=== PATIENT | female | born 2005 | race Caucasian/White ===

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

== ENCOUNTER 2024-04-11 08:42 | Emergency (ER) | payer OTHER ==
[2024-04-11 08:51] VITALS: RESP 18
[2024-04-11] MEDS: SODIUM CHLORIDE 0.9% 1,000 ML IV STA (10:17)
--- NOTE | 2024-04-11 10:19 | ED ---
Nausea/Vomiting/Diarrhea HPI - General Chief complaint: Nausea/Vomiting/Diarrhea Stated complaint: vomiting Time Seen by Provider: 04/11/24 08:53 Source: patient, RN notes reviewed Mode of arrival: ambulatory Limitations: no limitations - History of Present Illness Initial comments: This is a 18-year-old female who presents to the emergency department for nausea and vomiting. States that it started around 10 to 11 PM last night. She has been up all night vomiting and is unable to sleep. She has diarrhea as well. She has chills but has not measured any fevers. She has generalized abdominal discomfort from all of the vomiting. She has been around individuals who have been sick with the same symptoms. MD complaint: nausea, vomiting, diarrhea - Related Data Home Medications Medication Instructions Recorded Confirmed Doxylamine Succinate [Unisom] 25 mg PO DAILY 09/29/22 09/30/22 Vit No.179/Iron/Folic 1 tab PO DAILY 09/29/22 09/30/22 [ Tablet] Previous Rx's Medication Instructions Recorded Ibuprofen [Motrin] 600 mg PO Q6HR PRN #60 tab 10/01/22 Ondansetron Odt [Zofran Odt] 4 mg PO Q8HR PRN #20 tab 04/11/24 Allergies Allergy/AdvReac Type Severity Reaction Status Date / Time No Known Allergies Allergy Verified 04/11/24 08:52 Review of Systems ROS Statement: Those systems with pertinent positive or pertinent negative responses have been documented in the HPI. ROS Other: All systems not noted in ROS Statement are negative. Past Medical History Past Medical History: No Reported History Additional Past Medical History / Comment(s): constipation History of Any Multi-Drug Resistant Organisms: None Reported Past Surgical History: No Surgical Hx Reported Additional Past Anesthesia/Blood Transfusion Reaction / Comment(s): no anesthesia Past Psychological History: ADD/ADHD, Anxiety, Depression Smoking Status: Current every day smoker, Vaper Past Alcohol Use History: None Reported Past Drug Use History: Marijuana - Past Family History Father History Unknown: Yes General Exam Limitations: no limitations General appearance: alert, in no apparent distress Head exam: Present: atraumatic, normocephalic, normal inspection Respiratory exam: Present: normal lung sounds bilaterally. Absent: respiratory distress, wheezes, rales, rhonchi, stridor Cardiovascular Exam: Present: regular rate, normal rhythm, normal heart sounds. Absent: systolic murmur, diastolic murmur, rubs, gallop, clicks GI/Abdominal exam: Present: soft, normal bowel sounds. Absent: distended, tenderness, guarding, rebound, rigid Neurological exam: Present: alert, oriented X3, CN II-XII intact Psychiatric exam: Present: normal affect, normal mood Skin exam: Present: warm, dry, intact, normal color. Absent: rash Course Vital Signs 04/11/24 04/11/24 08:46 11:25 Temperature 97.9 F 99.1 F Pulse Rate 128 H 81 Respiratory 18 18 Rate Blood Pressure 115/64 100/62 O2 Sat by Pulse 99 99 Oximetry Medical Decision Making - Medical Decision Making This is a 18-year-old female who presents to the emergency department for nausea and vomiting. Was pt. sent in by a medical professional or institution? @ -No Did you speak to anyone other than the patient for history? @ -No Did you review nursing and triage notes? @ -Yes, and I agree, it is accurate with regards to the patient's symptoms. Were old charts reviewed? @ -No Differential Diagnosis? @ -Differential Nausea and Vomiting: Gastroenteritis, cholecystitis, appendicitis, pancreatitis, migraine, benign positional vertigo, food borne illness, pyelonephritis, irritable bowel syndrome, influenza, Covid, GERD, incarcerated hernia, intestinal obstruction, this is not meant to be an all-inclusive list. EKG interpreted by me (3pts min.)? @ -Not obtained X-rays interpreted by me (1pt min.)? @ -Not obtained CT interpreted by me (1pt min.)? @ -Not obtained U/S interpreted by me (1pt. min.)? @ -Not obtained What testing was considered but not performed? (CT, X-rays, U/S, labs)? Why? @ -None What meds were considered but not given? Why? @ -None Did you discuss the management of the patient with other professionals? @ -No Did you reconcile home meds? @ -No Was smoking cessation discussed for >3mins.? @ -No Was critical care preformed (if so, how long)? @ -No Were there social determinants of health that impacted care today? How? (Homelessness, low income, unemployed, alcoholism, drug addiction, transportation, low edu. Level, literacy, decrease access to med. care, snf, rehab)? @ -No Was there de-escalation of care discussed even if they declined? (Discuss DNR or withdrawal of care, Hospice)? @ -No What co-morbidities impacted this encounter? (DM, HTN, Smoking, COPD, CAD, Cancer, CVA, Hep., AIDS, mental health diagnosis, sleep apnea, morbid obesity)? @ -None Was patient admitted / discharged? @ -Discharged. Lab work demonstrates a mildly elevated bilirubin and AST and was otherwise unremarkable. COVID, influenza, and RSV testing negative. Urinalysis negative for signs of infection. Patient given IV fluids, Zofran, and famotidine, with resolution of symptoms. She was tolerating oral intake afterwards without difficulty. Prescription for Zofran provided. Advised she slowly advance her diet as tolerated and remain well-hydrated. Patient discharged home in stable condition. Advised she follow-up with her PCP regarding the elevated LFTs as well. Case discussed with ED attending Dr. De Jesus. Return precautions reviewed in depth, the patient is instructed to return to the emergency department with any new, worsening, or concerning symptoms. Patient verbalized understanding. Undiagnosed new problem with uncertain prognosis? @ -None Drug Therapy requiring intensive monitoring for toxicity (Heparin, Nitro, Insulin, Cardizem)? @ -None Were any procedures done? @ -None Diagnosis/symptom? @ -Gastroenteritis Acute, or Chronic, or Acute on Chronic? @ -Acute Uncomplicated (without systemic symptoms) or Complicated (systemic symptoms)? @ -Uncomplicated Side effects of treatment? @ -None Exacerbation, Progression, or Severe Exacerbation] @ -Not applicable Poses a threat to life or bodily function? @ -No - Lab Data Result diagrams: 04/11/24 10:18 04/11/24 10:18 Lab Results 04/11/24 04/11/24 04/11/24 Range/Units 10:18 10:18 10:18 WBC 9.4 (4.0-11.0) k/uL RBC 5.37 (3.80-5.40) m/uL Hgb 16.7 H (11.4-16.0) gm/dL Hct 48.4 H (34.0-46.0) % MCV 90.0 (80.0-100.0) fL MCH 31.0 (25.0-35.0) pg MCHC 34.5 (31.0-37.0) g/dL RDW 12.6 (11.5-15.5) % Plt Count 244 (150-450) k/uL MPV 7.2 Neutrophils % 90 % Lymphocytes % 5 % Monocytes % 4 % Eosinophils % 1 % Basophils % 0 % Neutrophils # 8.5 H (1.3-7.7) k/uL Lymphocytes # 0.5 L (1.0-4.8) k/uL Monocytes # 0.3 (0-1.0) k/uL Eosinophils # 0.1 (0-0.7) k/uL Basophils # 0.0 (0-0.2) k/uL Sodium (137-145) mmol/L Potassium (3.5-5.1) mmol/L Chloride (98-107) mmol/L Carbon Dioxide (22-30) mmol/L Anion Gap mmol/L BUN (7-17) mg/dL Creatinine (0.52-1.04) mg/dL Est GFR (CKD-EPI)AfAm (>60 ml/min/1.73 sqM) Est GFR (CKD-EPI)NonAf (>60 ml/min/1.73 sqM) Glucose (74-99) mg/dL Calcium (8.4-10.2) mg/dL Total Bilirubin (0.2-1.3) mg/dL AST (14-36) U/L ALT (4-34) U/L Alkaline Phosphatase (38-126) U/L Total Protein (6.3-8.2) g/dL Albumin (3.5-5.0) g/dL Amylase (30-110) U/L Lipase (23-300) U/L Urine Color Yellow Urine Appearance Clear (Clear) Urine pH 6.0 (5.0-8.0) Ur Specific [place] 1.033 (1.001-1.035) Urine Protein Trace H (Negative) Urine Glucose (UA) Negative (Negative) Urine Ketones 1+ H (Negative) Urine Blood Negative (Negative) Urine Nitrite Negative (Negative) Urine Bilirubin Negative (Negative) Urine Urobilinogen 2.0 (<2.0) mg/dL Ur Leukocyte Esterase Trace H (Negative) Urine RBC <1 (0-5) /hpf Urine WBC 4 (0-5) /hpf Ur Squamous Epith Cells 2 (0-4) /hpf Urine Bacteria Rare H (None) /hpf Urine Mucus Rare H (None) /hpf Urine HCG, Qual Not Detected (Not Detectd) Influenza Type A (PCR) (Not Detectd) Influenza Type B (PCR) (Not Detectd) RSV (PCR) (Not Detectd) SARS-CoV-2 (PCR) (Not Detectd) 04/11/24 04/11/24 Range/Units 10:18 10:18 WBC (4.0-11.0) k/uL RBC (3.80-5.40) m/uL Hgb (11.4-16.0) gm/dL Hct (34.0-46.0) % MCV (80.0-100.0) fL MCH (25.0-35.0) pg MCHC (31.0-37.0) g/dL RDW (11.5-15.5) % Plt Count (150-450) k/uL MPV Neutrophils % % Lymphocytes % % Monocytes % % Eosinophils % % Basophils % % Neutrophils # (1.3-7.7) k/uL Lymphocytes # (1.0-4.8) k/uL Monocytes # (0-1.0) k/uL Eosinophils # (0-0.7) k/uL Basophils # (0-0.2) k/uL Sodium 135 L (137-145) mmol/L Potassium 3.9 (3.5-5.1) mmol/L Chloride 98 (98-107) mmol/L Carbon Dioxide 25 (22-30) mmol/L Anion Gap 12 mmol/L BUN 18 H (7-17) mg/dL Creatinine 0.81 (0.52-1.04) mg/dL Est GFR (CKD-EPI)AfAm >90 (>60 ml/min/1.73 sqM) Est GFR (CKD-EPI)NonAf >90 (>60 ml/min/1.73 sqM) Glucose 106 H (74-99) mg/dL Calcium 9.8 (8.4-10.2) mg/dL Total Bilirubin 2.7 H (0.2-1.3) mg/dL AST 53 H (14-36) U/L ALT 31 (4-34) U/L Alkaline Phosphatase 67 (38-126) U/L Total Protein 8.0 (6.3-8.2) g/dL Albumin 4.9 (3.5-5.0) g/dL Amylase 51 (30-110) U/L Lipase 72 (23-300) U/L Urine Color Urine Appearance (Clear) Urine pH (5.0-8.0) Ur Specific [place] (1.001-1.035) Urine Protein (Negative) Urine Glucose (UA) (Negative) Urine Ketones (Negative) Urine Blood (Negative) Urine Nitrite (Negative) Urine Bilirubin (Negative) Urine Urobilinogen (<2.0) mg/dL Ur Leukocyte Esterase (Negative) Urine RBC (0-5) /hpf Urine WBC (0-5) /hpf Ur Squamous Epith Cells (0-4) /hpf Urine Bacteria (None) /hpf Urine Mucus (None) /hpf Urine HCG, Qual (Not Detectd) Influenza Type A (PCR) Not Detected (Not Detectd) Influenza Type B (PCR) Not Detected (Not Detectd) RSV (PCR) Not Detected (Not Detectd) SARS-CoV-2 (PCR) Not Detected (Not Detectd) Disposition Clinical Impression: Nausea and vomiting Disposition: HOME SELF-CARE Instructions (If sedation given, give patient instructions): Acute Nausea and Vomiting (ED), Acute Diarrhea (ED) Additional Instructions: Return to the emergency department with any new, worsening, or concerning symptoms. Take the Zofran up to every 8 hours as needed for nausea and vomiting. Slowly advance your diet as tolerated and remain well-hydrated. You can take [id number] Imodium as needed for diarrhea. Follow-up with your primary care provider 1 to 2 days. Prescriptions: Ondansetron Odt [Zofran Odt] 4 mg PO Q8HR PRN #20 tab PRN Reason: Nausea And Vomiting Is patient prescribed a controlled substance at d/c from ED?: No Referrals: None,Stated [Primary Care Provider] - 1-2 days Time of Disposition: 10:59
[2024-04-11] MEDS: FAMOTIDINE 20 MG/2 ML VIAL IV STA (10:23)
[2024-04-11] MEDS: ONDANSETRON 4 MG/2 ML VIAL IVP STA (10:25)
[2024-04-11 10:33] LABS: Appearance,Urine Clear (Clear); Bacteria,Urine Rare /hpf; Bilirubin,Urine Negative (Negative); Blood,Urine Negative (Negative); Color,Urine Yellow; Glucose,Urine (UA) Negative (Negative); Ketones,Urine 1+ (Negative); Leukocyte Esterase,Urine Trace (Negative); Mucus,Urine Rare /hpf; Nitrite,Urine Negative (Negative); Protein,Urine Trace (Negative); RBC,Urine <1 /hpf (0-5); Specific Gravity,Urine 1.033 (1.001-1.035); Squamous Epithelial Cell,Urine 2 /hpf (0-4); WBC,Urine 4 /hpf (0-5)
[2024-04-11 10:34] LABS: Basophils % (A) 0 %; Eosinophils # (A) 0.1 k/uL (0-0.7); Eosinophils % (A) 1 %; HCT 48.4 % (34.0-46.0); HGB 16.7 gm/dL (11.4-16.0); Lymphocytes # (A) 0.5 k/uL (1.0-4.8); Lymphocytes % (A) 5 %; MCHC 34.5 g/dL (31.0-37.0); Mean Platelet Volume 7.2; Monocytes # (A) 0.3 k/uL (0-1.0); Monocytes % (A) 4 %; Neutrophils # (A) 8.5 k/uL (1.3-7.7); Neutrophils % (A) 90 %; Platelet Count 244 k/uL (150-450); RBC 5.37 m/uL (3.80-5.40); RDW 12.6 % (11.5-15.5); WBC 9.4 k/uL (4.0-11.0)
[2024-04-11 10:48] LABS: ALT 31 U/L (4-34); AST 53 U/L (14-36); African American GFR (CKD) >90 (>60 ml/min/1.73 sqM); Albumin 4.9 g/dL (3.5-5.0); Alkaline Phosphatase 67 U/L (38-126); Amylase 51 U/L (30-110); Anion Gap 12 mmol/L; Blood Urea Nitrogen 18 mg/dL (7-17); Calcium 9.8 mg/dL (8.4-10.2); Carbon Dioxide 25 mmol/L (22-30); Chloride 98 mmol/L (98-107); Glucose 106 mg/dL (74-99); Lipase 72 U/L (23-300); Non-African American GFR(CKD) >90 (>60 ml/min/1.73 sqM); Potassium 3.9 mmol/L (3.5-5.1); Sodium 135 mmol/L (137-145); Total Bilirubin 2.7 mg/dL (0.2-1.3)
[2024-04-11 11:26] VITALS: BP 100/62; PULSE 81; TEMP 99.1
== END 2024-04-11 11:35 | disposition home or self-care (01) ==
LOC: EC 08:42
DX: R11.2 Nausea with vomiting, unspecified (principal); F17.290 Nicotine dependence, other tobacco product, uncomplicated
CPT/HCPCS: 36415; 80053; 82150; 83690; 85025; 81001; 81025; 87636; 99284; 96374; 96375; 96361; J2405; J3490

== ENCOUNTER 2024-06-19 13:30 | Observation (INO) | payer OTHER ==
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
[2024-06-19 14:36] LABS: Basophils # (A) 0.1 k/uL (0-0.2); Basophils % (A) 1 %; Eosinophils # (A) 0.1 k/uL (0-0.7); Eosinophils % (A) 2 %; HCT 43.1 % (34.0-46.0); HGB 15.8 gm/dL (11.4-16.0); Lymphocytes # (A) 1.1 k/uL (1.0-4.8); Lymphocytes % (A) 17 %; MCH 33.1 pg (25.0-35.0); MCHC 36.7 g/dL (31.0-37.0); MCV 90.3 fL (80.0-100.0); Mean Platelet Volume 7.1; Monocytes # (A) 0.2 k/uL (0-1.0); Monocytes % (A) 3 %; Neutrophils # (A) 4.9 k/uL (1.3-7.7); Neutrophils % (A) 76 %; Platelet Count 228 k/uL (150-450); RBC 4.77 m/uL (3.80-5.40); RDW 12.4 % (11.5-15.5); WBC 6.5 k/uL (4.0-11.0)
[2024-06-19] MEDS: SODIUM CHLORIDE 0.9% 500 ML 500 ML IV ONE (14:37)
[2024-06-19 14:41] LABS: Glucose,Whole Blood 82 mg/dL (70-110)
[2024-06-19 14:46] LABS: Appearance,Urine Clear (Clear); Bilirubin,Urine Negative (Negative); Blood,Urine Negative (Negative); Color,Urine Colorless; Glucose,Urine (UA) Negative (Negative); Ketones,Urine Negative (Negative); Leukocyte Esterase,Urine Negative (Negative); Nitrite,Urine Negative (Negative); Protein,Urine Negative (Negative); Specific Gravity,Urine 1.001 (1.001-1.035); Urobilinogen,Urine <2.0 mg/dL (<2.0)
[2024-06-19 14:52] LABS: INR 0.9 (<1.2); Partial Thromboplastin Time 26.2 sec (22.0-30.0); Prothrombin Time 10.4 sec (10.0-12.5)
[2024-06-19 14:58] LABS: ALT 15 U/L (4-34); AST 30 U/L (14-36); African American GFR (CKD) >90 (>60 ml/min/1.73 sqM); Albumin 5.2 g/dL (3.5-5.0); Alcohol <10 mg/dL; Alkaline Phosphatase 90 U/L (38-126); Anion Gap 10 mmol/L; Blood Urea Nitrogen 14 mg/dL (7-17); Calcium 10.4 mg/dL (8.4-10.2); Carbon Dioxide 22 mmol/L (22-30); Chloride 105 mmol/L (98-107); Glucose 90 mg/dL (74-99); Non-African American GFR(CKD) >90 (>60 ml/min/1.73 sqM); Potassium 4.1 mmol/L (3.5-5.1); Sodium 137 mmol/L (137-145); Total Bilirubin 1.4 mg/dL (0.2-1.3); Total Protein 8.6 g/dL (6.3-8.2)
--- NOTE | 2024-06-19 15:05 | CT ---
EXAMINATION TYPE: CT brain wo con DATE OF EXAM: 06/19/2024 COMPARISON: None HISTORY: 18 year-old female trauma, altered mental status, confusion, Around 3am pt was acting marilyn e and mother thought she took something. Pt may have taken some mushrooms. Parents called at 12 to la ve her checked out. Blood sugar was 90. TECHNIQUE: Examination was done in axial plane without intravenous contrast. Coronal and sagittal r econstructions performed. CT DLP: 1095.9 mGycm Automated exposure control for dose reduction was used. FINDINGS: There is no evidence of acute intracranial hemorrhage, acute ischemic changes, mass, mass-effect, or extra-axial fluid collection. There is no effacement of cerebral sulci or basal subarachnoid cister ns. There is no hydrocephalus. There is no midline shift. Rosales-white matter distinction is preserv ed. Moderate mucosal thickening ethmoid air cells. Mild to moderate right maxillary sinus and trace withi n the left maxillary sinus. Mastoid air cells are well pneumatized. Orbits and globes are intact. IMPRESSION: No acute intracranial abnormality seen. Mild to moderate chronic paranasal sinus disease. [facility], , 06/19/2024 3:03 PM
[2024-06-19 15:14] LABS: Amphetamine Screen,Urine Not Detected (NotDetected); Barbiturate Screen,Urine Not Detected (NotDetected); Benzodiazepines Screen,Urine Not Detected (NotDetected); Cocaine Screen,Urine Not Detected (NotDetected); Methadone Screen, Urine Not Detected (NotDetected); Opiate Screen,Urine Not Detected (NotDetected); Oxycodone Screen, Urine Not Detected (NotDetected); Phencyclidine Screen,Urine Not Detected (NotDetected); Tricyclic Antidepressant,Urine Detected (NotDetected); Urn Cannabinoid Scrn Not Detected (NotDetected)
[2024-06-19] MEDS: LORazepam 2 MG/ML INJ IV STA ×3 (16:17→18:08)
[2024-06-19] MEDS: ZIPRASIDONE 20 MG VIAL IM STA (17:22)
[2024-06-19] MEDS ORDERED: NALOXONE 0.4 MG/ML 1 ML VIAL IV PRN (17:45)
[2024-06-19] MEDS: SODIUM CHLORIDE 0.9% 1,000 ML IV SCH (18:08)
[2024-06-20] MEDS: LORazepam 2 MG/ML INJ IV PRN ×2 (03:10→08:42)
[2024-06-20] MEDS: ZIPRASIDONE 20 MG VIAL IM STA (03:52)
[2024-06-20] MEDS: OLANZapine 10 MG VIAL IM STA (13:30)
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
[2024-06-20] MEDS: LORazepam 2 MG/ML INJ IV STA (13:45)
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
[2024-06-20] MEDS: HALOPERIDOL LACTATE 5 MG/ML 1 ML VIAL IM STA (13:58)
[2024-06-20] MEDS: diphenhydrAMINE 50 MG/ML 1 ML VIAL IM STA (13:58)
[2024-06-20 14:18] VITALS: BMI 16.7
--- NOTE | 2024-06-20 16:58 | P.CNNES ---
History of Present Illness Consult date: 06/20/24 Requesting physician: Iris Singh Reason for Consult: ams History of Present Illness: This is a 18-year-old woman with history of syncopal spells and was notified due to stress, vapes, marijuana use send emergency department because of altered mental status. Patient is unable to provide history because of her severe confusion. History is obtained from the patient's parents who are bedside. According to the mother she stated that since this past Monday she has been confused talking about things that happened in the past as if it happened currently behavioral off. According to the mother she has been rambling about things. She does not have any history of seizures in the past. No recent sickness that she is aware of. Family members stated that patient vapes as well as uses marijuana through vaping and drinks alcohol about 1/5 and is not on a daily thing but whenever she drinks she drinks about 1/5 and family feels it is more than the limit for her age. She works as a record tabulating clerk restaurant. No Known history of schizophrenia or psychiatric disorder beside notified stress. No similar presentation in past. No family history of seizure. Is unaware if she is using drugs and they are not aware of it. Hospital visit patient received multiple doses of Ativan, and received Geodon but patient continues to be severely confused. In the past she had syncopal spells in which she passed out and she was evaluated at [facility] and the mother thinks that she had EEG but unsure and she was told that those were due to stress induced. Some of the workup during this hospital visit consisted of: CBC with differential is unremarkable Sodium, serum glucose, BUN/creatinine, AST ALT are within normal limits Calcium is 10.4. Urinalysis is unremarkable Urine hCG is not detected UA is positive for tricyclic antidepressant. Serum alcohol is less than 10. CT head is reported as No acute intracranial abnormality seen. Mild to moderate chronic paranasal sinus disease. Review of Systems Limited. Past Medical History Past Medical History: No Reported History Additional Past Medical History / Comment(s): constipation History of Any Multi-Drug Resistant Organisms: None Reported Past Surgical History: No Surgical Hx Reported Additional Past Anesthesia/Blood Transfusion Reaction / Comment(s): no anesthesia Past Psychological History: ADD/ADHD, Anxiety, Depression Smoking Status: Current every day smoker, Vaper Past Alcohol Use History: None Reported Past Drug Use History: Marijuana - Past Family History Father History Unknown: Yes Medications and Allergies Home Medications Medication Instructions Recorded Confirmed Type No Known Home Medications 06/19/24 06/19/24 History Allergies Allergy/AdvReac Type Severity Reaction Status Date / Time No Known Allergies Allergy Verified 06/19/24 15:53 Physical Examination - Vital Signs Vital Signs: Vital Signs Temp Pulse Resp BP Pulse Ox 06/20/24 08:00 98.2 F 96 18 117/85 99 06/20/24 03:38 87 18 103/73 100 06/19/24 16:56 109 H 18 126/87 97 Intake and Output 06/20/24 06/20/24 06/20/24 06:59 14:59 22:59 Other: Weight 48.534 kg General: Has psychotic behavior and is very tangential. Neuro: very Limited. Would have brief episodes in which she would state her name correctly as well as she correctly stated that she has a daughter that is 2 years old but then all of a sudden she is confused very erratic tangential hypophonic looking to the side trying to pick on the floor or her cloth, at times non responsive then talks tangential. Brief episode she would correctly identify pen. Pupils are round about 4 to 5 mm and reactive to light. She briefly was able to stick out her tongue with and there is no tongue bite. No visible facial weakness No dysarthria but has hypophonia. Motor: Able to assess individual muscle strength but her strength appears normal she would have episodes of psychotic episode she would push and her strength appeared normal. No jerking of any extremities. Unable to assess sensation or reflexes because of her cooperation She had bruises in the knees. Results - Laboratory Findings CBC and BMP: 06/19/24 14:18 06/19/24 14:18 Abnormal Lab Findings: Abnormal Labs 06/19/24 06/19/24 14:18 14:18 Calcium 10.4 H Total Bilirubin 1.4 H Total Protein 8.6 H Albumin 5.2 H U Tricyclic Antidepress Detected H Assessment and Plan Assessment: This is a 18-year-old woman who presents to the emergency department because of altered mental status, who severely confused since this past Monday. According to the mother she is talking about things that happened in the past as if they happen currently. She is very tangential and unable to understand her language has erratic behavioral. Examination she would have brief episode where she would respond to her name and correctly would state her daughters name but then all of a sudden she is all confused and has psychotic behavioral is very tangential with nonsensical. Acute psychosis unknown exact etiology. Rule out if due to drug use vs psychiatric vs seizure vs other etiologies. UDS is positive for TCA and per family members she is not home medication so unsure if this is accurate vs patient taking OTC medication. History of a couple of syncopal episodes in the past and had workup at [facility] and was told stress-induced according to her parents Alcohol use and her parent states that she drinks about 1/5 but not a daily Vapes THC via vaping Plan: I ordered EEG. Patient received multiple doses of Ativan, she received Geodon, Zyprexa but continues to be psychotic restless. She was given Benadryl as well as Haldol which eventually helped her calm down for the examination preliminary report is negative for seizures Order TSH, JUSTIN, vitamin B12, ionized calcium The patient on thiamine 200 mg twice a day for few days. Patient is on CIWA protocol Psychiatry is consulted Will defer the rest of the medical management to primary and other specialist The plan discussed with parents, primary team and her nurse Thank for the consultation I spend a total of 65 minutes on the care. Time with Patient: Greater than 30
[2024-06-20 19:10] LABS: Ionized Calcium 5.1 mg/dL (4.5-5.3)
[2024-06-20] MEDS: THIAMINE 100 MG/ML 2 ML VIAL IVP SCH (20:30)
--- NOTE | 2024-06-21 00:38 | EEG ---
ELECTROENCEPHALOGRAM REPORT CLINICAL HISTORY: This is a 18-year-old young woman with altered mental status and psychotic behavior. The video EEG is obtained to evaluate for seizure epileptiform activity. RELEVANT MEDICATIONS: The patient received multiple doses of Ativan, also received Zyprexa, Geodon, and Haldol. EEG TYPE: A routine 21-channel EEG with video using the 10/20 electrode placement system. DESCRIPTION: Wakefulness and drowsiness are obtained. During awake state, the background consists of [id number] voltage of 10 to 11 hertz activity. At times, the background consists of theta intermixed with delta activity. There is no physiological stage 2 sleep architecture. There is no focal slowing. There is excessive diffuse beta activity Interictal and ictal is none. ACTIVATION PROCEDURE: Photic stimulation and hyperventilation are not performed. CLINICAL INTERPRETATION: This is an abnormal routine EEG. The background slowing is suggestive of mild encephalopathy and probably this is due to medication effect. Otherwise, there is no focal slowing, epileptiform discharge, or seizure on the EEG. The excessive beta activity is likely due to medication effect (benzo). Clinical correlation is recommended. MMODL / IJN: [id number] / ELIZA
[2024-06-21] MEDS: LORazepam 2 MG/ML INJ IV PRN (02:03)
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
--- NOTE | 2024-06-21 23:41 | EEG ---
ELECTROENCEPHALOGRAM REPORT CLINICAL HISTORY: This is a 18-year-old woman, who presented to the emergency department because of altered mental status and psychosis. The video EEG is obtained to evaluate for seizure epileptiform activity. RELEVANT MEDICATIONS: 1. Ativan. 2. Haldol. 3. Geodon. 4. Zyprexa. EEG TYPE: This is a routine 21-channel EEG with video using the 10/20 electrode placement system. DESCRIPTION: The patient is in stage 3/4 throughout most of the study, consisting of 1 to 2 hertz at highly amplitude polymorphic delta activity intermixed with 10.5 to 11.5 hertz activity. There is no focal slowing. Interictal and ictal is none. ACTIVATION PROCEDURE: Photic stimulation and hyperventilation are not performed. CLINICAL INTERPRETATION: The patient is in stage 3/4 sleep predominate of the study. There is no focal slowing, epileptiform discharge, or seizure on the EEG. Clinical correlation is recommended. MARCY / YADIRA: [id number] / [id number]
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
[2024-06-22] MEDS: ACETAMINOPHEN TAB 325 MG TAB PO PRN (14:57)
[2024-06-22 15:06] LABS: Glucose,CSF 60 mg/dL (40-70); Total Protein,CSF 34 mg/dL (12-60)
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
[2024-06-22 15:42] LABS: Appearance,CSF Clear; Nucleated Cells, CSF 0 u/L (0-5); Red Blood Cell,CSF 0 u/L (0-10)
[2024-06-22 15:43] LABS: CSF Tube Number 3
--- NOTE | 2024-06-22 16:00 | P.PN ---
Progress Note - Text Progress Note Date: 06/22/24 PROCEDURE: LUMBAR PUNCTURE Date: 06/22/2024 Indication: Altered Mental Status Resident: Zach Lopez Attending: Ari Garcia The patient was placed in the LEFT lateral decubitus position in a semi- position. The area was cleansed and draped in usual sterile fashion. 1% lidocaine was used anesthetize the surrounding skin area. A 20-gauge 3.5-inch spinal needle was placed in the L4-L5 interspace. Clear cerebral spinal fluid was obtained. Unable to obtain opening pressure or closing pressure. Three tubes were filled with 3 mL of CSF in each tube. These were sent for the usual tests. The procedure was performed by Dr. Ari Garcia. Resident was present for the entire procedure. Estimated Blood Loss: 1-2cc. The patient tolerated the procedure well and there were no complications.
--- NOTE | 2024-06-22 17:32 | MR ---
EXAMINATION TYPE: MR brain wo/w con DATE OF EXAM: 06/22/2024 COMPARISON: CT brain 06/19/2024 HISTORY: Confusion, acute psychosis. CONTRAST: Performed utilizing 4.5 mL intravenous Gadavist gadolinium contrast. TECHNIQUE: Multiplanar, multiecho imaging on a 3.0 Monique magnet is performed through the brain. Stud y is performed within 24 hours of arrival to the hospital. The craniovertebral junction is normal. The pituitary is normal. Diffusion-weighted imaging is performed. No abnormal hyperintensity is present to suggest an acute i ntracranial infarct or acute ischemic change. Signal within the brain appears normal. No abnormal enhancement evident. Ventricles and sulci are appropriate for the patient age. There is mucosal thickening within the bilateral maxillary sinuses and ethmoid air cells. Minimal muc osal thickening in the right sphenoid sinus through the frontal sinuses. Correlate for chronic sinusi tis. IMPRESSION: 1. No suspicious intracranial radiographic abnormality. 2. Clinical consideration for chronic sinusitis [facility], , 06/22/2024 5:30 PM
[2024-06-22] MEDS: LORazepam 2 MG/ML INJ IV PRN (22:03)
[2024-06-23 08:19] VITALS: BP 99/68; PULSE 103; RESP 16; TEMP 97.7
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
[2024-06-26 12:53] LABS: IgG - CSF 1.6 mg/dL (0.0 - 3.4); IgG/Albumin Index (CSF) 0.47 (0.00 - 0.77)
[2024-06-27 12:45] LABS: West Nile Virus IgM Antibody 0.06 INDEX (<0.90)
== END 2024-06-23 11:21 | disposition home or self-care (01) ==
LOC: EC 13:30 → INTOOBSV 17:45 → 3SCARD 17:45 → 6NMEDSUR 06-22 23:23
PROVIDERS: ADMIT Hospitalist; ATTEND Hospitalist
DX: G93.41 Metabolic encephalopathy (principal); F23 Brief psychotic disorder; Z81.8 Family history of other mental and behavioral disorders
CPT/HCPCS: 96376 ×4; 96361 ×3; 96374 ×3; 96375 ×2; 96372 ×2; 99285; 36415; 95819 ×2; 93005; 87496; 87498; 87529; 87798 ×2; 84157; 80053; 82945; 85652; 84443; 82040; 82042; 82784; 83916; 82330; 82607; 82140; 82746; 83873; 84484; 85025; 85610; 85730; 89050; 81003; 81025; 86789; 86788; 83519; 83520; 86256; 86038; 80306; 87070; 87205; 87636; 86255; 70450; 70553; G0378 ×5; G0480; J2060 ×4; J1200; J1630; J3411 ×2; J3486 ×2; A9585; 80320

== ENCOUNTER 2024-06-24 15:24 | Emergency (ER) | payer OTHER ==
[2024-06-24 15:39] VITALS: TEMP 97.2
--- NOTE | 2024-06-24 16:07 | ED ---
Headache HPI - General Chief Complaint: Headache Stated Complaint: POST OP COMP,SPINAL Time Seen by Provider: 06/24/24 15:53 Source: patient, RN notes reviewed Mode of arrival: ambulatory Limitations: no limitations - History of Present Illness Initial Comments: This is a 18-year-old female who presents to the emergency department for a headache. Patient was discharged from the hospital yesterday after being admitted for altered mental status. Part of this workup included a lumbar puncture, which was done 2 days ago. Lumbar puncture was found to be normal. She had a mild headache afterwards, however last night she developed a severe headache that included light sensitivity, nausea, and vomiting. Headache is worse when she tries to sit up and is improved by laying flat. She initially went to urgent care and was advised to come to the emergency department for possible blood patch. She has not tried taking caffeine or any other medication . MD Complaint: headache - Related Data Home Medications Medication Instructions Recorded Confirmed No Known Home Medications 06/19/24 06/19/24 Allergies Allergy/AdvReac Type Severity Reaction Status Date / Time No Known Allergies Allergy Verified 06/24/24 15:39 Review of Systems ROS Statement: Those systems with pertinent positive or pertinent negative responses have been documented in the HPI. ROS Other: All systems not noted in ROS Statement are negative. Past Medical History Past Medical History: No Reported History Additional Past Medical History / Comment(s): constipation History of Any Multi-Drug Resistant Organisms: None Reported Past Surgical History: No Surgical Hx Reported Additional Past Anesthesia/Blood Transfusion Reaction / Comment(s): no anesthesia Past Psychological History: ADD/ADHD, Anxiety, Depression Smoking Status: Current every day smoker, Vaper Past Alcohol Use History: None Reported Past Drug Use History: Marijuana - Past Family History Father History Unknown: Yes Family Medical History: Syncope General Exam Limitations: no limitations General appearance: alert, in no apparent distress Head exam: Present: atraumatic, normocephalic, normal inspection Eye exam: Present: normal appearance, PERRL, EOMI. Absent: scleral icterus, conjunctival injection, periorbital swelling Respiratory exam: Present: normal lung sounds bilaterally. Absent: respiratory distress, wheezes, rales, rhonchi, stridor Cardiovascular Exam: Present: regular rate, normal rhythm, normal heart sounds. Absent: systolic murmur, diastolic murmur, rubs, gallop, clicks Back exam: Present: other (LP site is nontender. There is no erythema, swelling, or drainage) Neurological exam: Present: alert, oriented X3, CN II-XII intact Psychiatric exam: Present: normal affect, normal mood Skin exam: Present: warm, dry, intact, normal color. Absent: rash Course Vital Signs 06/24/24 06/24/24 15:35 19:59 Temperature 97.2 F L Pulse Rate 118 H 84 Respiratory 18 16 Rate Blood Pressure 112/75 124/78 O2 Sat by Pulse 100 100 Oximetry Medical Decision Making - Medical Decision Making This is a 18-year-old female who presents to the emergency department for a headache. Was pt. sent in by a medical professional or institution? @ -No Did you speak to anyone other than the patient for history? @ -No Did you review nursing and triage notes? @ -Yes, and I agree, it is accurate with regards to the patient's symptoms. Were old charts reviewed? @ -No Differential Diagnosis? @ -Differential Headache: Migraine, tension, cluster, carbon monoxide, central venous thrombosis, pension karma temporal arteritis, acute closure glaucoma, intercranial hemorrhage, mastoiditis, sinusitis, head injury, this is not meant to be an all-inclusive list. EKG interpreted by me (3pts min.)? @ -Not obtained X-rays interpreted by me (1pt min.)? @ -Not obtained CT interpreted by me (1pt min.)? @ -Not obtained U/S interpreted by me (1pt. min.)? @ -Not obtained What testing was considered but not performed? (CT, X-rays, U/S, labs)? Why? @ -None What meds were considered but not given? Why? @ -None Did you discuss the management of the patient with other professionals? @ -No Did you reconcile home meds? @ -No Was smoking cessation discussed for >3mins.? @ -No Was critical care preformed (if so, how long)? @ -No Were there social determinants of health that impacted care today? How? (Homelessness, low income, unemployed, alcoholism, drug addiction, transportation, low edu. Level, literacy, decrease access to med. care, custodial, rehab)? @ -No Was there de-escalation of care discussed even if they declined? (Discuss DNR or withdrawal of care, Hospice)? @ -No What co-morbidities impacted this encounter? (DM, HTN, Smoking, COPD, CAD, Cancer, CVA, Hep., AIDS, mental health diagnosis, sleep apnea, morbid obesity)? @ -None Was patient admitted / discharged? @ -Discharged. Patient treated with IV fluids, Toradol, Zofran, and 500 mg of caffeine. She essentially had resolution of symptoms afterwards. She was sitting up and tolerating oral intake without difficulty. Advised that she can have oral caffeine at home if symptoms return, however if she cannot control symptoms at home with oral analgesics and caffeine, she can return to the emergency department for possible blood patch. Patient discharged home in stable condition. Case discussed with ED attending Dr. Dent. Return precautions reviewed in depth, the patient is instructed to return to the emergency department with any new, worsening, or concerning symptoms. Patient verbalized understanding. Undiagnosed new problem with uncertain prognosis? @ -None Drug Therapy requiring intensive monitoring for toxicity (Heparin, Nitro, Insulin, Cardizem)? @ -None Were any procedures done? @ -None Diagnosis/symptom? @ -Spinal headache Acute, or Chronic, or Acute on Chronic? @ -Acute Uncomplicated (without systemic symptoms) or Complicated (systemic symptoms)? @ -Uncomplicated Side effects of treatment? @ -None Exacerbation, Progression, or Severe Exacerbation] @ -Not applicable Poses a threat to life or bodily function? @ -No Disposition Clinical Impression: Spinal headache Disposition: HOME SELF-CARE Condition: Stable Instructions (If sedation given, give patient instructions): Lumbar Puncture (ED) Additional Instructions: Return to the emergency department with any new, worsening, or concerning symptoms. If the headache returns, consume 300 mg of caffeine. You can take this up to twice daily, but make sure you wait at least several hours until taking another dose. you can purchase [id number] caffeine tablets to make sure you get the appropriate dose. You can also alternate with Ibuprofen and Tylenol. Follow up with your primary care provider in 1-2 days. Is patient prescribed a controlled substance at d/c from ED?: No Referrals: Aashish Archibald MD [Primary Care Provider] - 1-2 days Time of Disposition: 19:46
[2024-06-24] MEDS: KETOROLAC 15 MG/ML 1 ML VIAL IVP STA (16:17)
[2024-06-24] MEDS: SODIUM CHLORIDE 0.9% 1,000 ML IV STA (16:18)
[2024-06-24] MEDS: ONDANSETRON 4 MG/2 ML VIAL IVP STA (16:18)
[2024-06-24] MEDS: CAFFEINE-SODIUM BENZOATE 500 MG in SODIUM CHLORIDE 0.9% 1,000 ML IVPB ONE (16:28)
[2024-06-24] MEDS: ONDANSETRON 4 MG ODT STARTER PACK 2 TAB BTL PO STA (19:57)
[2024-06-24] MEDS: ACET/COD 300 MG/30 MG STARTER PACK 6 TAB BTL PO STA (19:58)
[2024-06-24] MEDS: IBUPROFEN 600 MG STARTER PACK 4 TAB BTL PO STA (19:58)
[2024-06-24 20:02] VITALS: BP 124/78; PULSE 84; RESP 16
== END 2024-06-24 19:59 | disposition home or self-care (01) ==
LOC: EC 15:24
DX: T88.59XA Other complications of anesthesia, initial encounter (principal); G44.40 Drug-induced headache, not elsewhere classified, not intractable; F17.290 Nicotine dependence, other tobacco product, uncomplicated
CPT/HCPCS: 99284; 96365; 96366; 96375 ×2; J2405; J1885; S0119

== ENCOUNTER 2024-06-26 12:40 | Emergency (ER) | payer OTHER ==
[2024-06-26 12:48] VITALS: TEMP 97.6
--- NOTE | 2024-06-26 14:05 | ED ---
Headache HPI - General Chief Complaint: Headache Stated Complaint: migraine/post op issues Time Seen by Provider: 06/26/24 12:50 Source: patient, RN notes reviewed Mode of arrival: ambulatory Limitations: no limitations - History of Present Illness Initial Comments: This is a 18-year-old female who presents to the emergency department for a headache. Patient had a lumbar puncture done here 4 days ago due to acute psychosis and altered mental status. Lumbar puncture returned normal. She was evaluated here 2 days ago for a spinal headache. Symptoms resolved with IV caffeine. She felt better throughout the rest of the night, however when she woke up the next day the pain returned. She tried taking caffeine tablets and other doaz-qzy-jzrepqa analgesics, however this did not help with the headache. Headache is much worse when she tries to sit up or stand and is relieved with laying flat. MD Complaint: headache - Related Data Home Medications Medication Instructions Recorded Confirmed Acetaminophen-Codeine 300-30mg 1 tab PO Q6H PRN 06/26/24 06/26/24 [Tylenol w/codeine #3] Caffeine Tab 300 mg PO BID PRN 06/26/24 06/26/24 Ibuprofen [Motrin] 600 mg PO Q6HR PRN 06/26/24 06/26/24 Ondansetron Odt [Zofran Odt] 4 mg PO Q8HR PRN 06/26/24 06/26/24 Allergies Allergy/AdvReac Type Severity Reaction Status Date / Time No Known Allergies Allergy Verified 06/26/24 14:43 Review of Systems ROS Statement: Those systems with pertinent positive or pertinent negative responses have been documented in the HPI. ROS Other: All systems not noted in ROS Statement are negative. Past Medical History Past Medical History: No Reported History Additional Past Medical History / Comment(s): constipation History of Any Multi-Drug Resistant Organisms: None Reported Past Surgical History: No Surgical Hx Reported Additional Past Anesthesia/Blood Transfusion Reaction / Comment(s): no anesthesia Past Psychological History: ADD/ADHD, Anxiety, Depression Smoking Status: Current every day smoker, Vaper Past Alcohol Use History: None Reported Past Drug Use History: Marijuana - Past Family History Father History Unknown: Yes Family Medical History: Syncope General Exam Limitations: no limitations General appearance: alert, in no apparent distress Head exam: Present: atraumatic, normocephalic, normal inspection Eye exam: Present: normal appearance, PERRL, EOMI. Absent: scleral icterus, conjunctival injection, periorbital swelling Respiratory exam: Present: normal lung sounds bilaterally. Absent: respiratory distress, wheezes, rales, rhonchi, stridor Cardiovascular Exam: Present: regular rate, normal rhythm, normal heart sounds. Absent: systolic murmur, diastolic murmur, rubs, gallop, clicks Neurological exam: Present: alert, oriented X3, CN II-XII intact Psychiatric exam: Present: normal affect, normal mood Skin exam: Present: warm, dry, intact, normal color. Absent: rash Course Vital Signs 06/26/24 06/26/24 06/26/24 12:45 17:40 18:00 Temperature 97.6 F Pulse Rate 60 156 H 96 Respiratory 26 H 26 H 21 Rate Blood Pressure 125/83 98/73 118/67 O2 Sat by Pulse 96 98 96 Oximetry 06/26/24 19:05 Temperature Pulse Rate 98 Respiratory 24 Rate Blood Pressure 131/80 O2 Sat by Pulse 98 Oximetry Medical Decision Making - Medical Decision Making This is a 18 year old female who presents to the emergency department for a headache. Was pt. sent in by a medical professional or institution? @ -No Did you speak to anyone other than the patient for history? @ -No Did you review nursing and triage notes? @ -Yes, and I agree, it is accurate with regards to the patient's symptoms. Were old charts reviewed? @ -No Differential Diagnosis? @ -Differential Headache: Migraine, tension, cluster, carbon monoxide, central venous thrombosis, pension karma temporal arteritis, acute closure glaucoma, intercranial hemorrhage, mastoiditis, sinusitis, head injury, this is not meant to be an all-inclusive list. EKG interpreted by me (3pts min.)? @ -Not obtained X-rays interpreted by me (1pt min.)? @ -Not obtained CT interpreted by me (1pt min.)? @ -Not obtained U/S interpreted by me (1pt. min.)? @ -Not obtained What testing was considered but not performed? (CT, X-rays, U/S, labs)? Why? @ -None What meds were considered but not given? Why? @ -None Did you discuss the management of the patient with other professionals? @ -Yes, Dr. Parham, anesthesiology, who was agreeable to a blood patch. Did you reconcile home meds? @ -No Was smoking cessation discussed for >3mins.? @ -No Was critical care preformed (if so, how long)? @ -No Were there social determinants of health that impacted care today? How? (Homelessness, low income, unemployed, alcoholism, drug addiction, transportation, low edu. Level, literacy, decrease access to med. care, long-term, rehab)? @ -No Was there de-escalation of care discussed even if they declined? (Discuss DNR or withdrawal of care, Hospice)? @ -No What co-morbidities impacted this encounter? (DM, HTN, Smoking, COPD, CAD, Cancer, CVA, Hep., AIDS, mental health diagnosis, sleep apnea, morbid obesity)? @ -None Was patient admitted / discharged? @ -Discharged. Patient did not have any sustained relief with the caffeine and continued to be symptomatic. Case discussed with Dr. Parham, on-call anesthesiology. He came to the emergency department and did a blood patch for the patient. She laid flat for an hour afterwards and was then discharged home in stable condition with improvement in the headache. Case discussed with ED attending Dr. Ashton. Return precautions reviewed in depth, the patient is instructed to return to the emergency department with any new, worsening, or concerning symptoms. Patient verbalized understanding. Undiagnosed new problem with uncertain prognosis? @ -None Drug Therapy requiring intensive monitoring for toxicity (Heparin, Nitro, Insulin, Cardizem)? @ -None Were any procedures done? @ -None Diagnosis/symptom? @ -Spinal headache Acute, or Chronic, or Acute on Chronic? @ -Acute Uncomplicated (without systemic symptoms) or Complicated (systemic symptoms)? @ -Uncomplicated Side effects of treatment? @ -None Exacerbation, Progression, or Severe Exacerbation] @ -Not applicable Poses a threat to life or bodily function? @ -No Disposition Clinical Impression: Spinal headache Disposition: HOME SELF-CARE Instructions (If sedation given, give patient instructions): Epidural Blood Patch (DC) Additional Instructions: Return to the emergency department with any new, worsening, or concerning symptoms. Follow up with your primary care provider in 1-2 days. Is patient prescribed a controlled substance at d/c from ED?: No Referrals: Aashish Archibald MD [Primary Care Provider] - 1-2 days Time of Disposition: 18:57
[2024-06-26] MEDS: ONDANSETRON 4 MG/2 ML VIAL IVP STA (14:15)
[2024-06-26] MEDS: SODIUM CHLORIDE 0.9% 1,000 ML IV STA (14:17)
[2024-06-26] MEDS: MORPHINE SULFATE 4 MG/ML SYRINGE IVP STA ×2 (14:18→19:04)
--- NOTE | 2024-06-26 18:06 | P.PAINCN ---
History of Present Illness - History of Present Illness This is a 18-year-old female comes to the ER with headache. Patient had dural puncture and CSF collection done in the ER about 5 days ago which was normal. Patient developed postural headache for which she was treated 2 days ago with IV fluid and caffeine which gave some pain relief. Patient's headache has been getting worse. She describes the pain as severe pulling. Sitting up or standing makes her headache worse. Laying flat significantly improves her headache. Intensity of the headache goes up to 10/10 according to patient. Headache is accompanied by photophobia, bright light makes her headache worse. Denies any nausea vomiting. Denies any vision disturbance. Denies any other sensory or motor neurological symptoms. Denies any neck rigidity. Past Medical History Past Medical History: No Reported History Additional Past Medical History / Comment(s): constipation History of Any Multi-Drug Resistant Organisms: None Reported Past Surgical History: No Surgical Hx Reported Additional Past Anesthesia/Blood Transfusion Reaction / Comm: no anesthesia Past Psychological History: ADD/ADHD, Anxiety, Depression Smoking Status: Current every day smoker, Vaper Past Alcohol Use History: None Reported Past Drug Use History: Marijuana - Past Family History Father History Unknown: Yes Family Medical History: Syncope Medications and Allergies Home Medications Medication Instructions Recorded Confirmed Type Acetaminophen-Codeine 300-30mg 1 tab PO Q6H PRN 06/26/24 06/26/24 History [Tylenol w/codeine #3] Caffeine Tab 300 mg PO BID PRN 06/26/24 06/26/24 History Ibuprofen [Motrin] 600 mg PO Q6HR PRN 06/26/24 06/26/24 History Ondansetron Odt [Zofran Odt] 4 mg PO Q8HR PRN 06/26/24 06/26/24 History Allergies Allergy/AdvReac Type Severity Reaction Status Date / Time No Known Allergies Allergy Verified 06/26/24 14:43 Physical Exam Vitals: Vital Signs Temp Pulse Resp BP Pulse Ox 06/26/24 12:45 97.6 F 60 26 H 125/83 96 Intake and Output 06/26/24 06/26/24 06/26/24 06:59 14:59 22:59 Other: Weight 44.452 kg - Constitutional General appearance: cooperative, mild distress - Neck No neck rigidity. - Neurologic Cranial nerves grossly intact. Motor strength 5/5 bilaterally. Sensation to touch grossly intact bilaterally. Neurologic: CNII-XII intact - Musculoskeletal Musculoskeletal: gait normal - Psychiatric Psychiatric: A&O x's 3, appropriate affect Assessment and Plan Assessment: Post dural puncture headache. Plan: Discussed with patient and her mother about the postdural puncture headache causes and possible treatment options. Told patient that this pain normally goes away in couple of weeks even if we do not do any intervention. Second option is to use caffeine and IV fluid which patient has tried for the last few days. The third option was to do epidural blood patch. Discussed the procedure of a blood patch in details with patient and her mother including possible complications which may include infection bleeding nerve damage, all of which could be permanent. Also discussed possibility of headache could get worse because of her repeat dural puncture. Neurological deficits like weakness in body parts or loss of sensation can happen which could be permanent. Patient and her mother understands and all questions were answered. Patient wants to go ahead and have epidural blood patch. Told patient to lay flat rest of the day other than going to bathrooms. Next 3 days avoid any increased pressure such as coughing sneezing constipation etc. Also next 3 days drink lots of fluid specially caffeinated beverages and laying in the bed as much as possible. Time with Patient: Greater than 30 PQRS Measure Charge Sheet PQRS Narrative: Smoking Status Never smoker Blood Pressure 125/83 Pain Intensity 7 Pain Scale Used Numeric (1 - 10) Scale Used Numeric (1 - 10) Home Medications: Ambulatory Orders Acetaminophen-Codeine 300-30mg [Tylenol w/codeine #3] 1 tab PO Q6H PRN 06/26/24 Caffeine Tab 300 mg PO BID PRN 06/26/24 Ibuprofen [Motrin] 600 mg PO Q6HR PRN 06/26/24 Ondansetron Odt [Zofran Odt] 4 mg PO Q8HR PRN 06/26/24
--- NOTE | 2024-06-26 18:18 | P.PCN ---
Description of Procedure: Preprocedure diagnosis. Post dural puncture headache. Postprocedure diagnosis. As above. Procedure done. Lumbar epidural blood patch. Anesthesia. Local infiltration of local anesthetics. Blood loss. None. Indication. Discussed with patient and her mother about the postdural puncture headache causes and possible treatment options. Told patient that this pain normally goes away in couple of weeks even if we do not do any intervention. Second option is to use caffeine and IV fluid which patient has tried for the last few days. The third option was to do epidural blood patch. Discussed the procedure of a blood patch in details with patient and her mother including possible complications which may include infection bleeding nerve damage, all of which could be permanent. Also discussed possibility of headache could get worse because of her repeat dural puncture. Neurological deficits like weakness in body parts or loss of sensation can happen which could be permanent. Patient and her mother understands and all questions were answered. Patient wants to go ahead and have epidural blood patch. Told patient to lay flat rest of the day other than going to bathrooms. Next 3 days avoid any increased pressure such as coughing sneezing constipation etc. Also next 3 days drink lots of fluid specially caffeinated beverages and laying in the bed as much as possible. Procedure note. After getting consent patient in sitting position. Back prepped with chlorhexidine and draped in sterile fashion. After injecting 5 cc of plain 1% lidocaine subcutaneously, a 20-gauge Touhy needle was introduced at approximate L2-3 area where the dural puncture was done. Needle was progressed with [id number] technique using a glass syringe filled with air. Negative CSF negative blood and negative paresthesia. ER nurse maynor about 20 cc of patient's own blood in sterile manner. Once the epidural needle was in epidural space, patient's own blood was slowly injected into the epidural space. Until patient started to feel a little bit pressure but no pain. About 20 mL of patient's own blood was injected into the epidural space. Epidural needle was taken out. Disposition. Patient was somewhat anxious after the procedure. Reassured her. Discussed with the ER physician about the procedure and patient's anxiety. At that point ER physician took over patient's care and I left ER.
[2024-06-26] MEDS: ACET/COD 300 MG/30 MG STARTER PACK 6 TAB BTL PO STA (19:05)
[2024-06-26 19:45] VITALS: BP 131/80; PULSE 98; RESP 24
== END 2024-06-26 19:15 | disposition home or self-care (01) ==
LOC: EC 12:40
CPT/HCPCS: 96361; 96374; 96375; 96376; 99284

== ENCOUNTER 2024-07-19 01:46 | Emergency (ER) | payer OTHER ==
[2024-07-19 01:55] VITALS: RESP 18
--- NOTE | 2024-07-19 02:30 | ED ---
URI HPI - General Chief Complaint: Upper Respiratory Infection Stated Complaint: Cough Time Seen by Provider: 07/19/24 02:29 Source: patient, RN notes reviewed Mode of arrival: ambulatory Limitations: no limitations - History of Present Illness Initial Comments: 18-year-old female presenting to the ER chief complaint of cough x 1 month. Cough is worse at night and is dry. Denies fever, sore throat, nasal congestion, chest pain, shortness of breath. Patient vapes daily. Daughter has same symptoms. - Related Data Home Medications Medication Instructions Recorded Confirmed Acetaminophen-Codeine 300-30mg 1 tab PO Q6H PRN 06/26/24 06/26/24 [Tylenol w/codeine #3] Caffeine Tab 300 mg PO BID PRN 06/26/24 06/26/24 Ibuprofen [Motrin] 600 mg PO Q6HR PRN 06/26/24 06/26/24 Ondansetron Odt [Zofran Odt] 4 mg PO Q8HR PRN 06/26/24 06/26/24 Allergies Allergy/AdvReac Type Severity Reaction Status Date / Time No Known Allergies Allergy Verified 07/19/24 01:55 Review of Systems ROS Statement: Those systems with pertinent positive or pertinent negative responses have been documented in the HPI. ROS Other: All systems not noted in ROS Statement are negative. Past Medical History Past Medical History: No Reported History Additional Past Medical History / Comment(s): constipation History of Any Multi-Drug Resistant Organisms: None Reported Past Surgical History: No Surgical Hx Reported Additional Past Anesthesia/Blood Transfusion Reaction / Comment(s): no anes thesia Past Psychological History: ADD/ADHD, Anxiety, Depression Smoking Status: Current every day smoker, Vaper Past Alcohol Use History: Rare Past Drug Use History: Marijuana - Past Family History Father History Unknown: Yes Family Medical History: Syncope General Exam Limitations: no limitations General appearance: alert, in no apparent distress Head exam: Present: atraumatic, normocephalic, normal inspection Eye exam: Present: normal appearance, PERRL, EOMI. Absent: scleral icterus, conjunctival injection, periorbital swelling ENT exam: Present: normal exam, normal oropharynx, mucous membranes moist Respiratory exam: Present: normal lung sounds bilaterally. Absent: respiratory distress, wheezes, rales, rhonchi, stridor Cardiovascular Exam: Present: regular rate, normal rhythm, normal heart sounds. Absent: systolic murmur, diastolic murmur, rubs, gallop, clicks Neurological exam: Present: alert, oriented X3 Psychiatric exam: Present: normal affect, normal mood Skin exam: Present: warm, dry, intact, normal color. Absent: rash Course Vital Signs 07/19/24 07/19/24 01:53 04:00 Temperature 98.3 F 98.0 F Pulse Rate 87 86 Respiratory 18 18 Rate Blood Pressure 103/69 110/74 O2 Sat by Pulse 98 97 Oximetry Medical Decision Making - Medical Decision Making Was pt. sent in by a medical professional or institution ([facility], HOSPICE/HOME HEALTH AIDE, urgent care, hospital, or prison...) When possible be specific @ -No Did you speak to anyone other than the patient for history (EMS, parent, family, police, friend...)? What history was obtained from this source @ -No Did you review nursing and triage notes (agree or disagree)? Why? @ -I reviewed and agree with nursing and triage notes Were old charts reviewed (outside hosp., previous admission, EMS record, old EKG, old radiological studies, urgent care reports/EKG's, prison records)? Report findings @ -No old charts were reviewed Differential Diagnosis (chest pain, altered mental status, abdominal pain women, abdominal pain men, vaginal bleeding, weakness, fever, dyspnea, syncope, headache, dizziness, GI bleed, back pain, seizure, CVA, palpatations, mental health, musculoskeletal)? @ -Viral URI, bronchitis, croup, strep pharyngitis, COVID, influenza, pertussis EKG interpreted by me (3pts min.). @ -None X-rays interpreted by me (1pt min.). @ -Chest x-ray reveals no acute process CT interpreted by me (1pt min.). @ -None done U/S interpreted by me (1pt. min.). @ -None done What testing was considered but not performed or refused? (CT, X-rays, U/S, labs)? Why? @ -None What meds were considered but not given or refused? Why? @ -None Did you discuss the management of the patient with other professionals (professionals i.e. , [facility], HOSPICE/HOME HEALTH AIDE, lab, RT, psych nurse, social media manager, garnett feeder, teacher, command center officer, case planner)? Give summary @ -No Was smoking cessation discussed for >3mins.? @ -No Was critical care preformed (if so, how long)? @ -No Were there social determinants of health that impacted care today? How? (Homelessness, low income, unemployed, alcoholism, drug addiction, transportation, low edu. Level, literacy, decrease access to med. care, shelter, rehab)? @ -No Was there de-escalation of care discussed even if they declined (Discuss DNR or withdrawal of care, Hospice)? DNR status @ -No What co-morbidities impacted this encounter? (DM, HTN, Smoking, COPD, CAD, Cancer, CVA, ARF, Chemo, Hep., AIDS, mental health diagnosis, sleep apnea, mo rbid obesity)? @ -None Was patient admitted / discharged? Hospital course, mention meds given and route, prescriptions, significant lab abnormalities, going to OR and other pertinent info. @ -Discharge. This is a 18-year-old female presenting for cough x 1 month. Denies fevers, chest pain, shortness of breath. Patient is afebrile, nontachycardic, satting 98% on room air. Heart and lungs clear to auscultation bilaterally. No sign of bacterial infection. Cepheid and strep negative. Chest x-ray reveals no acute process. Discussed negative results with patient. As there are no alarm symptoms, vital signs are unremarkable, and chest x-ray is unremarkable, advised to follow-up with PCP regarding symptoms as there does not appear to be emergent etiology at this time. Patient is agreeable to plan. Case was discussed with my ED attending Dr. Valladares. Patient discharged in stable condition. Undiagnosed new problem with uncertain prognosis? @ -No Drug Therapy requiring intensive monitoring for toxicity (Heparin, Nitro, Insulin, Cardizem)? @ -No Were any procedures done? @ -No Diagnosis/symptom? @ -Acute cough Acute, or Chronic, or Acute on Chronic? @ -Acute Uncomplicated (without systemic symptoms) or Complicated (systemic symptoms)? @ -Uncomplicated Side effects of treatment? @ -No Exacerbation, Progression, or Severe Exacerbation? @ -No Poses a threat to life or bodily function? How? (Chest pain, USA, LA, pneumonia, PE, COPD, DKA, ARF, appy, cholecystitis, CVA, Diverticulitis, Homicidal, Suicidal, threat to staff... and all critical care pts) @ -No - Lab Data Lab Results 07/19/24 07/19/24 Range/Units 02:31 02:31 Influenza Type A (PCR) Not Detected (Not Detectd) Influenza Type B (PCR) Not Detected (Not Detectd) RSV (PCR) Not Detected (Not Detectd) SARS-CoV-2 (PCR) Not Detected (Not Detectd) Group A Strep (PCR) NOT DETECTED (Not Detectd) Disposition Clinical Impression: Acute cough Disposition: HOME SELF-CARE Condition: Stable Instructions (If sedation given, give patient instructions): Acute Cough (ED) Additional Instructions: Please return to the Emergency Department if symptoms worsen or any other concerns. Is patient prescribed a controlled substance at d/c from ED?: No Referrals: None,Stated [Primary Care Provider] - 1-2 days Time of Disposition: 03:47
[2024-07-19 04:01] VITALS: BP 110/74; PULSE 86; TEMP 98
--- NOTE | 2024-07-19 05:42 | XR ---
EXAMINATION TYPE: XR chest 2V DATE OF EXAM: 07/19/2024 COMPARISON: NONE HISTORY: Cough for one month. TECHNIQUE: Frontal and lateral views of the chest are obtained. FINDINGS: There is no focal air space opacity, pleural effusion, or pneumothorax seen. The cardiac silhouette size is within normal limits. The osseous structures are intact. IMPRESSION: No acute pulmonary infiltrate. [facility], , 07/19/2024 5:40 AM
== END 2024-07-19 04:00 | disposition home or self-care (01) ==
LOC: EC 01:46
DX: R05.9 Cough, unspecified (principal); F17.290 Nicotine dependence, other tobacco product, uncomplicated
CPT/HCPCS: 71046; 87636; 87651; 99283